=== PATIENT | female | born 1965 | race Caucasian/White ===

== ENCOUNTER 2023-12-21 07:17 | Outpatient (CLI) | payer OTHER, SELFPAY ==
--- NOTE | ~2023-12-21 | MR_ITS ---
MRI of the lumbar spine Clinical History: Back pain Technique: Axial T2-weighted images, and sagittal T1-weighted, T2-weighted, and and T2 fat-sat images were acquired. Findings: There is no fracture or subluxation of the lumbar spine. Vertebral bodies maintain normal h eight and alignment. No suspicious bone marrow signal abnormality seen. At L1-L2, there is no disc bulge or herniation. There is moderate facet arthropathy. No central canal stenosis or neural foraminal narrowing. At L2-L3, there is minimal disc bulge and moderate facet arthropathy. No central canal stenosis or ne ural foraminal narrowing. L3-L4, there is disc bulge and moderate to severe facet arthropathy. No central canal stenosis. There is moderate to severe left neural foraminal narrowing. Right neural foramen preserved. At L4-L5, there is advanced degenerative disc change. There is mild diffuse disc bulge with moderate facet arthropathy. No central canal stenosis. There is severe right neural foraminal narrowing, and m oderate left neural foraminal narrowing. L5-S1, there is moderate degenerative disc narrowing. There is disc bulge/protrusion, predominantly a t the right paracentral region, with moderate to advanced facet arthropathy. No central canal stenosi s. There is severe right neural foraminal narrowing. There is minimal left neural foraminal narrowing . Paravertebral soft tissues are unremarkable. Impression: Moderate degenerative spondylosis, as detailed above, with multilevel neural foraminal narrowing pres ent. Reviewed, dictated and finalized at location . Impression: Moderate degenerative spondylosis, as detailed above, with multilevel neural fo raminal narrowing present.
== END 2023-12-21 07:18 ==
LOC: MICIMG 07:19
PROVIDERS: PCP Family Medicine; Visit Provider Family Medicine
DX: M51.36 Other intervertebral disc degeneration, lumbar region (principal); M54.42 Lumbago with sciatica, left side; M47.896 Other spondylosis, lumbar region
CPT/HCPCS: 72148

== ENCOUNTER 2024-05-15 15:32 | Outpatient (CLI) | payer OTHER, SELFPAY ==
--- NOTE | 2024-05-15 15:46 | ECG_ITS ---
Test Date: 2024-05-15 15:50:37 Measurements Intervals [place] Rate: 84 P: 66 VA: 158 QRS: 59 QRSD: 103 T: 67 QT: 358 QTc: 425 Interpretive Statements SINUS RHYTHM NORMAL ELECTROCARDIOGRAM No previous ECG available for comparison Electronically Signed On 05-16-2024 13:10:38 CDT by Pino Stokes M.D.
[2024-05-15 16:19] LABS: Hematocrit 44.4 % (37.0-47.0); Hemoglobin 14.8 g/dL (12.0-15.0); Mean Corpuscular HGB Conc 33.3 g/dl (32-36); Mean Corpuscular Hemoglobin 32.7 pg (26-34); Mean Platelet Volume 9.9 fl (7.4-10.4); Platelet Count Result 144 k/mm3 (150-375); Red Blood Count 4.53 M/mm3 (4.2-5.4); Red Cell Distribution Width 12.7 % (11.5-14.5); White Blood Count 5.6 K/mm3 (4.5-10.0)
[2024-05-15 16:27] LABS: Add Urine Microscopic? YES; Appearance Urine Clear (Clear); Bacteria Urine None Seen /hpf; Bilirubin Urine Negative (Negative); Blood Urine Trace (Negative); Color Urine Yellow (Yellow); Glucose Urine UA Negative (Negative); Ketones Urine Negative (Negative); Leukocyte Esterase Ur Negative LEU/UL (Negative); Nitrate Urine Negative (Negative); Non Pathogenic Casts 0-2; Protein Urine Negative (Negative); RBC Urine 0-2 /hpf (0-2); Specific Grav Ur 1.036 (1.001-1.035); Squamous Epithelial Cell Urine None Seen /hpf (Few); WBC Urine 0-5 /hpf (0-3)
[2024-05-15 16:29] LABS: Prothrombin Time 13.8 Seconds (11.1-14.7)
[2024-05-15 16:30] LABS: Partial Thromboplastin Time 25.4 Seconds (22.3-36.8)
[2024-05-15 16:31] LABS: Anion Gap 10 mmol/L (4-12); Blood Urea Nitrogen 30 mg/dL (7-17); Calcium 9.3 mg/dL (8.4-10.2); Carbon Dioxide 25 mmol/L (22-30); Chloride 102 mmol/L (98-107); Estimated Glomerular Filt Rate > 60; Glucose 104 mg/dL (65-110); Potassium 3.6 mmol/L (3.4-5.0); Sodium 137 mmol/L (137-145)
== END 2024-05-15 15:33 | disposition home or self-care (01) ==
PROVIDERS: PCP Family Medicine; Visit Provider Neurological Surgery
DX: Z01.818 Encounter for other preprocedural examination (principal); M48.061 Spinal stenosis, lumbar region without neurogenic claudication
CPT/HCPCS: 36415; 80048; 81001; 85027; 85610; 85730; 93005

== ENCOUNTER 2024-05-21 00:37 | Day surgery (SDC) | payer OTHER, SELFPAY ==
[2024-05-14 10:29] VITALS: BMI 26.2
--- NOTE | 2024-05-14 10:43 | SUR.PREOP ---
Addendum entered by Ranjit Parks RN 05/14/24 11:14: PT TO CALL DR ODEN WHO PRESCRIBED HER BLOOD THINNER AND ASK ABOUT HOLDING ELIQUIS FOR [address] TROTTER ORDER SET. PT TO LET DR TROTTER OFFICE TO KNOW IF BLOOD THINNERS CANT BE HELD FOR 7 DAYS. Original Note: Report to the Outpatient Waiting Room, entrance under the [facility] located off [facility], at time 0900 on date 05/21/24 . Planned Procedure Time: 1100.? Time changes happen often and if your time is changed the preop area will call you the afternoon before. - You and your visitor will be asked to self-screen and do not enter if you have any COVID symptoms. Please call surgeon if you need to reschedule. - A mask is optional within the hospital at this time. Patients may have clear liquids (water, carbonated beverages, clear teas, apple juice) until 3 hours prior to surgery with a maximum of 20 ounces. - No food from midnight until time of surgery and no smoking - Infants may have breast milk until 4 hours before surgery, formula 6 hours prior to surgery. - Children will be allowed to drink immediately following surgery.? If applicable, please bring a bottle or sippy cup to assist with drinking. Juice, water, soda, and popsicles are readily available.? For infants on formula, please bring formula the day of surgery.? Pacifiers are allowed. Take only the following medications with a SIP of water on the morning of surgery: MAY TAKE LYRICA, TYLENOL IF NEEDED DO NOT STOP ANY OF YOUR OTHER PRESCRIPTION MEDICATIONS PRIOR TO SURGERY EXCEPT THE FOLLOWING Medications to discontinue per physician STOP ALL VITAMINS AND SUPPLIMENTS 3 DAYS PRIOR TO PROCEDURE (MAGNESIUM) Date to take last dose MondayApril Please no make-up, nail syriac, hairspray, perfume, deodorant, or body powder the day of surgery.? No jewelry (including any body piercings) or valuables the day of surgery, leave them at home.? Please take a shower or bath the night before, or the morning of, surgery with an antibacterial soap.? Wear comfortable, loose fitting clothing.? Children are encouraged to wear pajamas. - Jewelry must be removed prior to entering the operating room.? Rings and piercings that are not removed may be cut off. - The hospital will not accept responsibility for valuables.? - Please leave all valuables, including medications, at home the day of surgery. If you are going home after surgery, a licensed gravel truck driver must drive you home.? - NO public transportation without another adult if you receive anesthesia. - We recommend that an adult stay with you for 24 hours following discharge. - We also recommend that you do not drive, make important decision, drink alcoholic beverages, or take any drugs that were not prescribed by your health care provider for at least 24 hours after your discharge time. For Pediatric surgeries, we recommend two adults accompany the child home. Follow any additional instructions given to you from your surgeon. Telephone instructions given to MARIAH REDDY and asked if any additional questions and then verbalized understanding. Patient advised to call surgeon office or pre surgery nurse liaison [phone] if any additional questions.
--- NOTE | 2024-05-14 11:17 | SUR.PREOP ---
PT TO CALL DR ODEN WHO PRESCRIBED HER BLOOD THINNER AND ASK ABOUT HOLDING ELIQUIS FOR [address] TROTTER ORDER SET. PT TO LET DR TROTTER OFFICE TO KNOW IF BLOOD THINNERS CANT BE HELD FOR 7 DAYS.
[2024-05-21] VITALS (12 sets, daily range): BP systolic 109–144; BP diastolic 47–84; PULSE 73–85; RESP 12–20; TEMP 36.2–36.7; O2SAT 93–100
--- NOTE | ~2024-05-21 | XR_ITS ---
XR fluoroscopy no charge Indication:left L3-4 far lateral foraminotomy TECHNIQUE: Fluoroscopy used during left L3-4 far lateral foraminotomy performed by [Rober momin MD] on 05/21/2024. 2 seconds of fluoroscopy with one fluoroscopic images captured. FINDINGS: Correlate with procedure note. IMPRESSION: Fluoroscopy used during left L3-4 far lateral foraminotomy. Reviewed, dictated and finalized at location B.
[2024-05-21] MEDS: LACTATED RINGERS 1,000 ML 30 ML IV CONT (09:30)
--- NOTE | 2024-05-21 11:15 | P.PNAN_ITS ---
Anes - Initial Pre Proc Eval Procedure: Operation Date: 05/21/24 11:00 Proposed Procedures p Left L3-4 Far Lateral Foraminotomy - Rober Coleman MD Date/Time: 05/21/24 11:15 Surgeon: Rober Coleman MD Pre Op Diagnosis: left L3-4 foraminal stenosis Patient Data Age: 58 Gender: F Height: 1.85 m Weight: 92.8 kg Last Vital Signs Temp 36.7 C 05/21/24 09:14 Pulse 77 05/21/24 09:14 Resp 20 05/21/24 09:14 BP 130/55 L 05/21/24 09:14 Pulse Ox 100 05/21/24 09:14 O2 Del Method Room Air 05/21/24 09:14 Allergies Allergy/AdvReac Type Severity Reaction Status Date / Time No Known Allergies Allergy Verified 05/21/24 09:11 Home Medications Medication Instructions Recorded Confirmed Type apixaban 5 mg tablet (Eliquis) 5 mg PO BID 04/29/24 05/14/24 History pregabalin 25 mg capsule (Lyrica) 25 mg PO BID 04/29/24 05/21/24 History Tylenol 325 mg PO DAILY 05/14/24 05/21/24 History magnesium 1 cap PO DAILY 05/14/24 05/21/24 History Patient hx anesthesia problems: none Family hx anesthesia problems: none Results Review: All pre-operative results and documents have been reviewed as part of the pre-op erative evaluation. [facility] Family History Family History Mother Family history of cardiovascular disease Family history of cardiac disorder Family history of malignant neoplasm Family history of lymphoma Sibling Family history of pulmonary embolism Mother Family history of blood dyscrasia Family history of malignant neoplasm Family history of lymphoma Family history of heart disease in male family member before age 55 Sibling Family history of migraine headaches Father Family history of hearing loss Social History Social History Smoking status: Never smoker Second hand tobacco smoke exposure: Yes Alcohol intake: never Substance use: current Other substance usage details: 1 or 2 times a week Do You Feel Safe in your Home?: Yes Lack of Transportation: No Lack of Food: Never True Current Housing: I Have Housing Concerned About Future Housing: No Difficulty Paying Gas/Electric Bills: No Difficulty Paying for Meds: No Currently Unemployed: No Education: Bachelor's Degree Difficulty w/ Childcare or Family Care: No Living arrangements: with family Spiritual care concerns: No Anes - Eval Final PreProcedure Day of Procedure 05/21/24 11:15 Patient weight: overweight Heart: regular rate and rhythm Lungs: clear to auscultation Airway: Mallampati scale class II Neurological: alert and oriented Last oral intake: >/= 8 hours ASA classification: III Emergent: no Anesthetic plan: proceed Anesthesia type and monitoring: general ETT and standard monitoring Results Review: All pre-operative results and documents have been reviewed as part of the pre- operative evaluation. Informed Consent: The patient's anesthetic plan and its attendant risks and benefits were discussed with the patient/family/POA. Questions were solicited and answers provided to the satisfaction of the patient/family/POA.
--- NOTE | 2024-05-21 11:16 | PM.IMHP ---
H&P: HPI History of Present Illness Date/Time: 05/21/24 11:16 Chief Complaint: Back and leg pain Narrative: Kayleigh is a 58-year-old female with a long-time history of intermittent pain in her back radiating into her lower extremities now with more severe pain for the last month or so that extends mainly in the left lower extremity down to the knee. She does not complain specifically of back pain. She occasionally has discomfort on the right. The pain is limiting and distracting for her daily. She is, in fact, using a wheelchair to get around and is in 1 and today in the office although she does not report specific muscle group weakness but generalized weakness secondary to pain. The pain is quite severe. She has participated in physical therapy several times for this discomfort without permanent benefit. She has also undergone injections which have never helped her for more than a day. The pain exists when she is sitting especially in her buttock and is worse if she stands and walks and as mentioned, radiates down the left lower extremity to about the knee. She has never completely without pain. Review of Systems Review of Systems: Const All systems reviewed & are unremarkable except as noted in HPI and below Denies chills, Denies fever(s), Denies weakness, Denies weight gain and Denies weight loss Eyes Denies change in vision and Denies diplopia ENT Denies neck pain and Denies disequilibrium Card Denies chest pain and Denies dyspnea Resp Denies cough and Denies dyspnea GI Denies abdominal pain, Denies change in bowel habits, Denies fecal incontinence and Denies vomiting Denies hematuria, Denies oliguria, Denies difficulty urinating, Denies dysuria, Denies urinary frequency, Denies urinary hesitancy, Denies urinary incontinence and Denies urinary urgency Musc Reports as per HPI, Reports back pain, Denies muscle weakness, Denies neck pain, Reports numbness and Denies stiffness Skin/ Breast Reports system reviewed and no additional complaints, except as documented Neuro Reports as per HPI, Denies burning sensations, Denies focal weakness, Reports numbness, Denies Other visual disturbances, Reports radicular pain, Reports paresthesias, Denies disequilibrium and Denies weakness Psych Reports no additional complaints, Denies depression and Denies hopelessness Endo Reports no additional complaints and Denies polyuria Christopher/ Lymph Reports no additional complaints Aller/ Immun Reports no additional complaints PMFSH Family History Family History Mother Family history of cardiovascular disease Family history of cardiac disorder Family history of malignant neoplasm Family history of lymphoma Sibling Family history of pulmonary embolism Mother Family history of blood dyscrasia Family history of malignant neoplasm Family history of lymphoma Family history of heart disease in male family member before age 55 Sibling Family history of migraine headaches Father Family history of hearing loss Social History Social History Smoking status: Never smoker Second hand tobacco smoke exposure: Yes Alcohol intake: never Substance use: current Other substance usage details: 1 or 2 times a week Do You Feel Safe in your Home?: Yes Lack of Transportation: No Lack of Food: Never True Current Housing: I Have Housing Concerned About Future Housing: No Difficulty Paying Gas/Electric Bills: No Difficulty Paying for Meds: No Currently Unemployed: No Education: Bachelor's Degree Difficulty w/ Childcare or Family Care: No Living arrangements: with family Spiritual care concerns: No Meds Home Medications and Allergies Home Medications Medication Instructions Recorded Confirmed Type apixaban 5 mg tablet (Eliquis) 5 mg PO BID 04/29/24 05/14/24 History pregabalin 25 mg capsule (L
--- NOTE | 2024-05-21 11:20 | WPDHPUPDATE1 ---
History and Physical Update Update Date/Time: 05/21/24 11:20 History and Physical has been reviewed, including an updated exam of the patient. There are NO changes in the patient's condition. Risks, benefits, and alternatives have been discussed and questions answered. Patient agrees to proceed with procedure.
[2024-05-21] MEDS: ceFAZolin 2 GM/D5W 50 ML 2 GM/50 ML BAG IVPB (11:27)
[2024-05-21] MEDS: LIDO 1%/EPINEPHRINE 1:100,000 20 ML VIAL 10 ML INFILTRATE (11:59)
--- NOTE | 2024-05-21 12:28 | W.PM.PROC2 ---
Procedure Note - Detailed Date of Procedure 05/21/24 Pre-op Diagnosis left L3-4 foraminal stenosis Post-op Diagnosis Same Procedure Performed Left L3-4 far lateral foraminotomy Surgeon Rober Coleman MD Anesthesia General Description of Procedure The patient was brought to the operating room in the supine position, was sedated, intubated placed under general anesthesia in routine fashion. She was then turned into the prone position on a [place] frame. The of operation on her back was examined, marked for incision, prepped and draped in routine sterile fashion. Incision was marked over the L3 and L4 spinous processes in the midline. This area was injected with 0.5% lidocaine with [id number] epinephrine. Intravenous antibiotics given prior to incision. Incision was made with a 10 blade scalpel down to the lumbodorsal fascia. A subperiosteal dissection of the muscle soft tissue away from spinous process and lamina was performed with a subperiosteal elevator and Bovie cautery. A verifying x-rays obtained to verify the level of operation. Midas-Sanjeev drill was used to perform a lateral resection of the pars and facet to the soft contents the foramen were encountered. Under microscopy the yellow ligament was lifted removed piecemeal using Kerrison punches. The pedicle was felt and the nerve root identified. There was significant overgrowth of ligament pushing down into the nerve. This was all removed using Kerrison punches. The dissection was carried distally. Proximally and additional bone was removed the Midas-Sanjeev drill and Kerrison punches and curved curettes. These maneuvers were performed until a nerve hook could be placed proximally and distally to confirm lack of compression. The wound was copiously irrigated with bacitracin irrigation all bleeding stopped with bipolar and Bovie cautery and Gelfoam thrombin powder. Wound was then closed in layered fashion with 2-0 Vicryl interrupted sutures in the lumbodorsal fascia and Nino's layer. 3-0 Vicryl buried interrupted sutures placed in the dermis and skin was closed with a running 4-0 Monocryl subcuticular stitch and dressed with Dermabond. The patient was allowed to wake up in the operating room and was taken to the recovery room in stable condition. There were no immediate complications of this operation. All counts were reported correct at the end of the case. The patient was neurologically at her baseline postoperatively. CPT codes: 25999, 44599 Estimated Blood Loss 25 IV Fluids 1,000 Complications None Condition Stable Disposition PACU [facility] Billing Surgery - Charge Forward: Surgery Billing
[2024-05-21] MEDS: fentaNYL CITRATE INJ (*CRX) 100 MCG/2 ML VIAL 25 MCG IV PUSH ×8 (12:41→13:37)
--- NOTE | 2024-05-21 15:07 | ADMGEN ---
This patient, Kayleigh Vance, was admitted to 2 Medical Room 242-. Patient/family oriented to hospital policies and general routines including ID bracelet, bed and alarms, visiting hours, pain management, procedures, bathroom and other care routines, personal items, smoking policy, room service/diet, and visiting hours. Information on how to activate the Rapid Response Team has been discussed. Patient/Family are encouraged to report perceived risks to care and to ask questions if they do not understand what they are told or what they should do.
[2024-05-21] MEDS: HYDROcodone/acetaminophen (*CRX) 5-325 MG TABLET 1 TAB PO ×2 (15:25→21:15)
[2024-05-21] MEDS: CYCLOBENZAPRINE HCL 10 MG TABLET PO (17:43)
[2024-05-21] MEDS: KCL 20 MEQ/D5/0.45% SOD CHL 1,000 ML 30 ML IV CONT (17:53)
[2024-05-21] MEDS: DOCUSATE SODIUM 100 MG CAPSULE PO (20:33)
[2024-05-22 00:26] VITALS: BP 131/58; PULSE 59; RESP 18; TEMP 36.4; O2SAT 99
[2024-05-22] MEDS: HYDROcodone/acetaminophen (*CRX) 5-325 MG TABLET 1 TAB PO ×2 (06:37→12:11)
[2024-05-22 07:08] VITALS: BP 113/61; PULSE 78; RESP 14; TEMP 36.6; O2SAT 99
[2024-05-22 08:00] VITALS: BP 108/58; PULSE 75; RESP 16; TEMP 36.1; O2SAT 99
[2024-05-22] MEDS: DOCUSATE SODIUM 100 MG CAPSULE PO (08:25)
[2024-05-22 12:00] VITALS: BP 120/60; PULSE 88; RESP 16; TEMP 36.6; O2SAT 99
== END 2024-05-22 13:15 | disposition home or self-care (01) ==
LOC: ANHSURGERY 08:51 → ANH2MED 14:33
PROVIDERS: PCP Family Medicine; Visit Provider Neurological Surgery
PROC: (CPT 63005; principal; 2024-05-21 11:00)
DX: M48.061 Spinal stenosis, lumbar region without neurogenic claudication (principal)
CPT/HCPCS: 63056; 36415; 80048; 81001; 85027; 85610; 85730; 93005; 97110; 97116; 97161; 97165; 97530; 97535; 99199; A9270; J0330; J0690; J1100; J2250; J2405; J2704; J3010; J3480; J7120